=== PATIENT | female | born 1995 | race Caucasian/White ===

== ENCOUNTER 2019-08-29 05:20 | Emergency (ER) | payer MEDICAID ==
[~2019-08-29] VITALS: Ht 162.6 cm; Wt 65.0 kg
[~2019-08-29 05:20] MED LIST: CEFU500T PO; IBUP-1984 PO
[2019-08-29 05:31] VITALS: BP 138/79
[2019-08-29 05:46] LABS: COLOR,URINE STRAW (Yellow); GLUCOSE, URINE NEGATIVE (Neg); KETONES,URINE NEGATIVE (Neg); LEUKOCYTE ESTERASE ,URINE NEGATIVE (Neg); NITRITES, URINE NEGATIVE (Neg); OCCULT BLOOD,URINE TRACE-INTACT (Neg); PROTEIN,URINE NEGATIVE (Neg); UROBILINOGEN,URINE 0.2 E.U/dL (0.2-1.0)
[2019-08-29 05:50] LABS: CLARITY,URINE SLIGHTLY CLOUDY (Clear); UA COLLECTION TYPE CLN CATCH MIDSTREAM; URINE HCG POSITIVE (NEG)
[2019-08-29 05:52] LABS: BACTERIA,URINE 1+ /HPF (Neg); MUCUS STRANDS NONE SEEN /LPF (Neg); SQUAMOUS EPITHELIAL CELL,UR FEW /LPF (FEW); WBC,URINE 0-4 /HPF (0-4)
[2019-08-29] MEDS ORDERED: nitrofuran/nitrofuran macrocrysal 100 MG capsule PO ONE (05:55)
[2019-08-29] MEDS ORDERED: CEPH500C5 PO (06:07)
== END 2019-08-29 06:20 | disposition home or self-care (01) ==
LOC: ER 05:20
DX: O23.43 Unspecified infection of urinary tract in pregnancy, third trimester (principal); F17.200 Nicotine dependence, unspecified, uncomplicated; Z79.899 Other long term (current) drug therapy; Z3A.29 29 weeks gestation of pregnancy
CPT/HCPCS: 81001; 81025; 99283

== ENCOUNTER 2022-11-12 00:37 | Inpatient (IN) | payer MEDICAID ==
[~2022-11-12] VITALS: Ht 165.1 cm; Wt 47.2 kg
[2022-11-12] MEDS ORDERED: normal saline 1000ml 1,000 ML IV ONE (01:35)
[2022-11-12] MEDS ORDERED: morphine 4 MG/ML inj SYRINge IV ONE (01:35)
[2022-11-12] MEDS ORDERED: gentamicin in saline, iso-osm 80 MG/50 ML premix IV ONE (01:35)
[2022-11-12] MEDS ORDERED: ondansetron/PF 4mg/2ml inj IV ONE (01:35)
[2022-11-12] MEDS ORDERED: ceFAZolin/D5W- 1GM premix 50 ML IV ONE (01:45)
[2022-11-12] MEDS ORDERED: TETanus/Pertussis (Acell)/Diphther VAC/PF (Tdap-Adult) 0.5ml syringe IMVAC ONE (01:50)
[2022-11-12 02:16] LABS: BASOPHILS % (AUTO) 0.1 % (0-1); EOSINOPHILS % (AUTO) 0.3 % (0-6); HEMATOCRIT 39.2 % (35.0-45.0); HEMOGLOBIN 13.4 g/dl (12.0-16.0); LYMPHOCYTES # (AUTO) 1.6 X10'3 (1.1-4.8); LYMPHOCYTES % (AUTO) 9.7 % (21-51); MEAN CORPUSCULAR HEMOGLOBIN 32.1 PG (27.0-31.0); MEAN CORPUSCULAR HGB CONC 34.1 g/dL (33.0-36.5); MEAN CORPUSCULAR VOLUME 94.3 FL (78-98); MONOCYTES # (AUTO) 0.8 X10'3 (0-0.9); MONOCYTES % (AUTO) 4.9 % (2-12); NEUTROPHILS # (AUTO) 13.7 X10'3 (1.8-7.7); PLATELET COUNT 171 X10'3 (140-440); RED BLOOD COUNT 4.16 X10'6 (4.20-5.60); RED CELL DISTRIBUTION WIDTH 12.7 % (11.5-14.5); WHITE BLOOD COUNT 16.1 X10'3 (4.5-11.0)
[2022-11-12 02:23] LABS: ALANINE AMINOTRANSFERASE 19 U/L (12-78); ALBUMIN 4.3 G/DL (3.4-5.0); ALBUMIN/GLOBULIN RATIO 1.4 (1.1-1.5); ALKALINE PHOSPHATASE 44 IU/L (46-116); ANION GAP 12 (8-16); ASPARTATE AMINO TRANSFERASE 12 U/L (10-37); BILIRUBIN,TOTAL 0.4 MG/DL (0.1-1.0); BLOOD UREA NITROGEN 12 MG/DL (7-18); CALCIUM 9.7 MG/DL (8.5-10.1); CHLORIDE 106 MMOL/L (99-107); CREATININE 0.75 MG/DL (0.40-0.90); GLUCOSE 116 MG/DL (70-104); POTASSIUM 3.8 MMOL/L (3.5-5.1); SODIUM 143 MMOL/L (135-145); TOTAL CARBON DIOXIDE 25.3 MMOL/L (24-32); TOTAL PROTEIN 7.3 G/DL (6.4-8.2); eGFR > 90 ML/MIN
[2022-11-12] MEDS ORDERED: gentamicin inj 80 MG in normal saline 100ml IV soln 100 ML IV ONE (02:30)
[2022-11-12] MEDS ORDERED: cefazolin 2gm/D5W 100mL 100 ML IV ONE (02:40)
[2022-11-12] MEDS ORDERED: magnesium Cl slow-release 64mg tablet PO PRN (03:20)
[2022-11-12] MEDS ORDERED: morphine 2 MG/ML inj. syringe IV PRN ×2 (03:20)
[2022-11-12] MEDS ORDERED: HYDROcodone/acetaminophen 5mg/325mg tablet PO PRN (03:20)
[2022-11-12] MEDS ORDERED: acetaminophen 325mg tablet PO PRN ×2 (03:20)
[2022-11-12] MEDS ORDERED: HYDROcodone/acetaminophen 10/325mg tab PO PRN (03:20)
[2022-11-12] MEDS ORDERED: ondansetron/PF 4mg/2ml inj IV PRN (03:20)
[2022-11-12] MEDS ORDERED: potassium Cl 20 mEq SR tablet PO PRN ×2 (03:20)
[2022-11-12] MEDS ORDERED: bisacodyl 10mg suppository rectal RC PRN (03:20)
[2022-11-12] MEDS ORDERED: normal saline 1000ml 1,000 ML IV SCH (03:20)
[2022-11-12] MEDS ORDERED: magnesium hydroxide 30ml (MOM) UD suspension PO PRN (03:20)
[2022-11-12] MEDS ORDERED: potassium Cl 40MEQ/1/2NS 520ml 520 ML IV PRN (03:20)
[2022-11-12] MEDS ORDERED: magnesium 4gm in 100ml NS 100 ML IV PRN (03:20)
[2022-11-12] MEDS ORDERED: magnesium 2GM in 50ml NS 50 ML IV PRN (03:20)
--- NOTE | 2022-11-12 06:24 | NUR ---
ATTEMPTED TO CALL REPORT FLOOR NURSE UNAVAILABLE
--- NOTE | 2022-11-12 06:30 | NUR ---
Patient in room ORTHO 4009C. I have received report from BRUNO VOGEL FROM ER and had the opportunity to ask questions and assume patient care.
[2022-11-12 07:05] VITALS: BP 153/79; PULSE 99; RESP 16; TEMP 98; O2SAT 100
--- NOTE | 2022-11-12 07:30 | NUR ---
This development writer walked into this patient's room to tend to a different patient. The patient Andreas.Laura. in this room was sitting on the bed screaming at someone on the phone "I don't fing care, bring it to me". A majority of the context was f this and f that, loudly enough to disturb this side of the floor. This development writer asked the patient to please tone down the language and not swear as there were two other ill patients in the room that were trying to rest. Patient Oswaldo, screamed "I don't fing care, this hospital is horrible, can I go?". This development writer asked the patient what we could do for her she yelled that she wanted a phone renal dialysis rn and something to eat. Patient Andreas.Laura. yelled that "we" hadn't taken care of any of her needs. Patient Andreas.Laura. stated she wanted to "just go" and "I don't even know why I'm up here". This development writer advised the patient we could see if a renal dialysis rn was available and the meal trays had just arrived to the floor. This development writer also advised patient S.A. that nurses were all on the floor tending to patients, getting meds etc. Patient Andreas.Laura. kept screaming "I don't fing care, bedside manner, bedside manner". Patient Oswaldo asked if she could go outside. This development writer advised that she would not be able to but she wasn't being held here. Patient Oswaldo was advised if she left it would be AMA - against medical advice. Patient Oswaldo continued to scream at this development writer, and this development writer exited the room. Patient came out of her room asking to have her IV taken out and was escorted by staff to her nurse at the other nurse's station. suspender maker made aware. This development writer wasn't made aware of any other conversation that may have taken place at the other nurse's station and with other staff.
--- NOTE | 2022-11-12 07:45 | NUR ---
AT APPROXIMATELY [id number] PATIENT WAS BROUGHT TO NURSE'S STATION BY ANOTHER STAFF MEMBER. THE PATIENT WAS YELLING ABOUT HOW SHE WASN'T "BEING TREATED RIGHT" AND 'THAT ALL STAFF WAS RUDE AND AHD POOR BEDSIDE MANNER." I ASKED IF THERE WAS ANYTHING WE COULD DO TO KEEP HER HERE DUE TO THE NATURE OF HER INJURY INCLUDING MOVING ROOMS, PATIENT STATED THAT SHE JUST WANTED TO LEAVING SITING THAT SHE NEEDED TO TALK TO BOSS ABOUT NOT LOSING JOB AND ABOUT LINING MAKER. PATIENT KEPT STATING THAT SHE WAS LEFT HERE AND JUST WANTS TO GO HOME. I EDUCATED HER THAT THE INJURY THAT SHE HAD NEEDED IMMEDIATE ATTENTION MOST LIKELY SURGERY AND DELAY IN CARE COULD CAUSE FURTHER HARM. PATIENT STATED SHE UNDERSTOOD THE RISK OF LEAVING AND DELAYING CARE AND STATED SHE WOULD GO TO "THE OTHER HOSPITAL" AFTER TALKING TO BOSS AND SMOKING. PATIENT SIGNED AMA FORM AND PROMPTLY LEFT FLOOR. WAS CONTRACTED.
[2022-11-12] MEDS ORDERED: nicotine 14mg patch - 24hr TD SCH (08:00)
[2022-11-12] MEDS ORDERED: gentamicin in saline, iso-osm 80 MG/50 ML premix IV SCH (08:00)
[2022-11-12] MEDS ORDERED: gentamicin inj 80 MG in normal saline 100ml IV soln 100 ML IV SCH (10:00)
[2022-11-12] MEDS ORDERED: ceFAZolin/D5W- 1GM premix 50 ML IV SCH (11:00)
[2022-11-12] MEDS ORDERED: enoxaparin 40mg/0.4ml syringe SQ SCH (20:00)
[2022-11-12] MEDS ORDERED: temazepam 15mg capsule PO PRN (21:00)
== END 2022-11-12 07:37 | disposition left against medical advice (07) | DRG 351 ==
LOC: ER 00:38 → ED HOLD 03:22 → ORTHO 4S 07:00
PROVIDERS: ADMIT Internal Medicine; ATTEND Internal Medicine
PROC: 3E0234Z Introduction of Serum, Toxoid and Vaccine into Muscle, Percutaneous Approach (ICD-10-PCS; principal; 2022-11-12)
DX: S51.012A Laceration without foreign body of left elbow, initial encounter (principal); F17.200 Nicotine dependence, unspecified, uncomplicated; Y28.0XXA Contact with sharp glass, undetermined intent, initial encounter; Z53.29 Procedure and treatment not carried out because of patient's decision for other reasons; S53.492A Other sprain of left elbow, initial encounter; Z23 Encounter for immunization; Y93.89 Activity, other specified; Y92.89 Other specified places as the place of occurrence of the external cause; Y99.8 Other external cause status; Z79.899 Other long term (current) drug therapy
CPT/HCPCS: 36415; 73070; 80053; 85025; 90715; 99285; A4565; A6223; A6449; G0378; J0690; J1580; J2270; J2405; J3490; J7030